=== PATIENT | male | born 1955 | race Caucasian/White ===

== ENCOUNTER 2018-07-29 19:32 | Emergency (ER) | payer MEDICARE, OTHER, SELFPAY ==
[2018-07-29] VITALS (7 sets, daily range): BP systolic 133–191; BP diastolic 74–95; PULSE 61–89; RESP 17–22; TEMP 36.8; O2SAT 96–100; BMI 25.1
[2018-07-29] MEDS: SODIUM CHLORIDE 0.9% 1,000 ML 150 ML IV (20:15)
[2018-07-29 20:36] LABS: Add Manual Diff / Slide Review NO; Basophils Absolute Auto 100 /uL (0-100); Basophils Percent Auto 1.1 % (0-2); Eosinophils Absolute Auto 200 /uL (0-450); Eosinophils Percent Auto 2.3 % (2-4); Hemoglobin 16.1 g/dL (13.5-17.5); Lymphocytes Absolute Auto 2100 /uL (1100-4500); Lymphocytes Percent Auto 21.1 % (25-40); Mean Corpuscular HGB Conc 33.6 % (30-36); Mean Corpuscular Hemoglobin 30.2 PG (26-34); Mean Corpuscular Volume 89.8 fL (80-100); Monocytes Absolute Auto 800 /uL (0-900); Neutrophils Absolute Auto 6800 /uL (1500-7000); Neutrophils Percent Auto 67.5 % (50-75); Platelet Count 195 X10^3/uL (150-400); Red Blood Cell Count 5.34 X10^6/uL (4.5-5.9); White Blood Cell Count 10.1 X10^3/uL (4.5-11.0)
[2018-07-29] MEDS: HYDROMORPHONE 1 MG INJ IV (20:42)
[2018-07-29] MEDS: ONDANSETRON 4 MG/2 ML INJ IV (20:42)
[2018-07-29 20:47] LABS: Alanine Aminotransferase 58 IU/L (21-72); Albumin Globulin Ratio 1.7 (1.0-2.8); Alkaline Phosphatase 93 U/L (38-126); Aspartate Aminotransferase 53 IU/L (17-59); BUN Creatinine Ratio 22.7 (6-22); Bilirubin Total 0.7 mg/dL (0.2-1.3); Blood Urea Nitrogen 25 mg/dL (9-20); Carbon Dioxide 25 mmol/L (22-32); Chloride 104 mmol/L (98-107); Creatine Kinase 638 U/L (55-170); Estimated Glomerular Filt Rate > 60.0 mL/min (>60); Glucose 90 mg/dL (80-110); HEMOLYSIS < 15 (0-50); Lipase 84 U/L (23-300); Potassium 3.9 mmol/L (3.4-5.1); Sodium 140 mmol/L (137-145)
[2018-07-29 20:58] LABS: Troponin I 0.013 ng/mL (0.01-0.034)
--- NOTE | 2018-07-29 20:58 | DI.RAD.S_ITS ---
PROCEDURE: XR ACUTE ABDOMEN SERIES INDICATIONS: Abdominal pain TECHNIQUE: One view chest and two views of the abdomen were acquired. COMPARISON: None. FINDINGS: Surgical changes and devices: None. Chest: Lungs are clear. Heart size is normal. No pleural effusions. No pneumoperitoneum. Abdomen: Bowel gas pattern is normal. No suspicious calcifications. Visualized solid organ contours appear normal. Large amount of fecal debris. Bones: No suspicious bony lesions. IMPRESSION: 1. No evidence acute pulmonary process. 2. No evidence acute abdominal process. 3. Large amount of fecal debris. Dictated by: Helder Pena M.D. on 07/29/2018 at 21:28 Approved by: Helder Pena M.D. on 07/29/2018 at 21:29
[2018-07-29 21:02] LABS: Creatine Kinase MB 6.47 ng/mL (<2.37)
[2018-07-29] MEDS: HYDROMORPHONE 1 MG INJ 0.5 MG IV (21:35)
--- NOTE | 2018-07-29 21:41 | DI.CT.S_ITS ---
PROCEDURE: CT ABDOMEN PELVIS W CON INDICATIONS: severe abdominal pain, sudden onset TECHNIQUE: After the administration of intravenous contrast, 5 mm thick sections acquired from the diaphragm to the symphysis. 5 mm coronal and sagittal reformats were acquired. For radiation dose reduction, the following was used: automated exposure control, adjustment of mA and/or kV according to patient size. COMPARISON: None. FINDINGS: Image quality: Excellent. ABDOMEN: Lung bases: Lung bases are clear. Heart size is normal. Solid organs: Liver is normal in size and enhancement. Gallbladder is unremarkable. Biliary system is non dilated. Pancreas enhances normally. Spleen is normal in size and enhancement. No adrenal nodules. Kidneys demonstrate normal size and enhancement, without hydronephrosis. Peritoneum and bowel: Bowel loops demonstrate normal wall thickness and caliber. No free fluid or air. Nodes and vessels: No retroperitoneal or mesenteric adenopathy by size criteria. Aorta and inferior vena cava are normal in size. Miscellaneous: No ventral hernias. PELVIS: Genitourinary: Bladder wall thickness is normal. Prostate is enlarged. Miscellaneous: There are bilateral inguinal hernias containing fat. Bones: No suspicious bony lesions. No vertebral body compression fractures. There is mild canal stenosis at L4-L5. At L5-S1, there is a right paracentral disc protrusion which impinges on the right S1 nerve root in the right lateral recess. IMPRESSION: 1. No evidence acute abdominal process. 2. Bilateral inguinal hernias containing fat. 3. Mild canal stenosis at L4-L5. 4. Right paracentral disc protrusion at L5-S1 impinges on the right S1 nerve root in the right lateral recess. Dictated by: Helder Pena M.D. on 07/29/2018 at 22:03 Approved by: Helder Pena M.D. on 07/29/2018 at 22:07
--- NOTE | 2018-07-29 23:05 | ED_ITS ---
HPI - Abdominal Pain General Chief Complaint: Abdominal Pain Stated Complaint: lower middle abdominal pain sudden onset Time Seen by Provider: 07/29/18 19:52 Source: patient and family Mode of arrival: ambulatory Limitations: no limitations History of Present Illness HPI narrative: 63-year-old male nonsmoker with a very benign medical history presents with multiple family and friends and a chief complaint of a sudden onset terrible abdominal pain. He had felt totally normal and at baseline until just prior to arrival when he had very severe sudden-onset mid epigastric pain which seems to move through his abdomen without provocation or palliation. His pain is worsened with palpation or movement. States that its onset felt very similar to prior episodes of gas pain but he has never had it last this long. He has had some difficulty moving his bowels lately but nothing out of the ordinary. He denies any significant alcohol or nicotine intake. He denies any recent antibiotics or exposure to bad food. He denies fever nor chills. When his pain became significant he vomited. He denies any dysuria, frequency or urgency. MD complaint: abdominal pain Onset (ago): minute(s) Pain Consistency: intermittent and colicky Location: diffuse Severity: severe Quality: cramping and stabbing Radiation: none Migration to: suprapubic Relieving factors: nothing Exacerbating factors: movement Associated symptoms: nausea and vomiting Related Data Previous Rx's Medication Instructions Recorded hydrocodone-acetaminophen 1 tab PO Q4-6H PRN #10 tab 07/29/18 ondansetron 4 mg PO TID-QID PRN #10 tab 07/29/18 Allergies Allergy/AdvReac Type Severity Reaction Status Date / Time Sulfa (Sulfonamide Allergy Verified 07/29/18 19:46 Antibiotics) Review of Systems Constitutional Denies chills, Denies fever(s), Denies lethargy and Denies weakness Eyes Denies change in vision, Denies eye discharge, Denies irritation and Denies loss of vision ENT Ears, Nose, Mouth, and Throat: Denies change in voice, Denies neck pain and Denies sore throat Cardiovascular Denies chest pain, Denies irregular heart rhythm, Denies lightheadedness, Denies palpitations, Denies dyspnea, Denies dyspnea on exertion and Denies orthopnea Respiratory Denies cough, Denies dyspnea, Denies dyspnea on exertion and Denies wheezing Gastrointestinal Gastrointestinal: Reports abdominal pain, Denies change in bowel habits, Denies diarrhea, Reports nausea and Reports vomiting Genitourinary Denies hematuria, Denies flank pain, Denies urinary incontinence and Denies urinary urgency Musculoskeletal Denies neck pain Integumentary/Breasts Denies pruritus, Denies erythema, Denies rash and Denies wounds Neurologic Denies confusion, Denies loss of vision and Denies weakness Psychiatric Denies anxiety, Denies confusion, Denies depression, Denies homicidal ideation and Denies suicidal ideation Endocrine Denies palpitations Hematologic/Lymphatic Denies easy bruising Allergic/Immunologic Denies wheezing PFSH Social History Smoking Status: Never smoker Exam Narrative Exam Narrative: GENERAL: 63-year-old male appears younger than stated age. He is obviously in significant distress with significant pain and holding his abdomen HEAD: Atraumatic. Normocephalic. No temporal or scalp tenderness. EYES: Pupils equal round and reactive. Extraocular motions intact. No scleral icterus. No injection or drainage. ENT: Nose without bleeding, purulent drainage or septal hematoma. Throat without erythema, tonsillar hypertrophy or exudate. Uvula midline. Airway patent. NECK: Trachea midline. No JVD or lymphadenopathy. Supple, nontender, no meningeal signs. CARDIOVASCULAR: Regular rate and rhythm without murmurs, gallops, or rubs. RESPIRATORY: Clear to auscultation. Breath sounds equal bilaterally. No wheezes, rales, or rhonchi. GASTROINTESTINAL: Abdomen soft, generalized tenderness, nondistended. No hepato-splenomegaly, or palpable masses. No guarding. no rebound EXTREMITIES: No clubbing, cyanosis, or edema. No joint tenderness, effusion, or edema noted. BACK: Nontender without deformity or crepitance. No flank tenderness. NEURO: AOx3. SKIN: No rash or erythema. Initial Vital Signs Initial Vital Signs: Vital Signs Temperature 98.3 F 07/29/18 19:36 Pulse Rate 65 07/29/18 19:36 Respiratory Rate 22 07/29/18 19:36 Blood Pressure 191/95 H 07/29/18 19:36 Pulse Oximetry 99 07/29/18 19:36 Course Orders Ordered: ED Orders 07/29/18 21:41 CT abdomen pelvis w con Stat Discontinued Medications Hydrocodone Bitart/Acetaminophen (Vicodin Prepack) 1 bottle MISC SEEINSTR ONE Stop: 07/29/18 23:06 Last Admin: 07/29/18 23:18 Dose: 1 bottle Hydromorphone HCl (Dilaudid) 1 mg IV NOW ONE Stop: 07/29/18 20:31 Last Admin: 07/29/18 20:42 Dose: 1 mg Hydromorphone HCl (Dilaudid) 0.5 mg IV NOW ONE Stop: 07/29/18 21:05 Last Admin: 07/29/18 21:35 Dose: Not Given Hydromorphone HCl (Dilaudid) 0.5 mg IV NOW ONE Stop: 07/29/18 21:34 Last Admin: 07/29/18 21:35 Dose: 0.5 mg Sodium Chloride (Normal Saline 0.9%) 1,000 mls @ 150 mls/hr IV CONT ALICIA Last Infusion: 07/29/18 23:18 Dose: 0 mls/hr Admin: 07/29/18 20:15 Dose: 150 mls/hr Ondansetron HCl (Zofran) 4 mg IV NOW ONE Stop: 07/29/18 20:31 Last Admin: 07/29/18 20:42 Dose: 4 mg Ondansetron HCl (Zofran Odt Prepack) 1 bottle MISC SEEINSTR ONE Stop: 07/29/18 23:06 Last Admin: 07/29/18 23:18 Dose: 1 bottle Reevaluation(s) Reevaluation #1: patient felt some relief after initial dose of Dilaudid but requested a 2nd dose. Sometime after the administration of that 2nd dose the patient had a complete resolution of his symptoms and remained that way for the duration of his stay Vital Signs - 8 hr 07/29/18 22:30 07/29/18 23:00 07/29/18 23:26 Pulse Rate 89 75 70 Respiratory Rate 22 17 Blood Pressure 134/83 Blood Pressure [Right Arm] 133/74 134/83 Pulse Oximetry 99 MDM - Abdominal Pain Differential Diagnosis Differential diagnosis: Likely abdominal pain, acute appendicitis, calculus of kidney, constipation, diverticulitis, pancreatitis and small bowel obstruction Medical Records Attestation: I reviewed the patient's medical records. Lab Data Attestation: I reviewed the patient's lab results. Result diagrams: 07/29/18 20:10 07/29/18 20:10 Lab Results 07/29/18 07/29/18 Range/Units 20:10 20:10 WBC 10.1 (4.5-11.0) X10^3/uL RBC 5.34 (4.5-5.9) X10^6/uL Hgb 16.1 (13.5-17.5) g/dL Hct 48.0 (41-53) % MCV 89.8 (80-100) fL MCH 30.2 (26-34) PG MCHC 33.6 (30-36) % RDW 14.0 (11.6-14.8) % Plt Count 195 (150-400) X10^3/uL Neut % (Auto) 67.5 (50-75) % Lymph % (Auto) 21.1 L (25-40) % Loup % (Auto) 8.0 (3-14) % Eos % (Auto) 2.3 (2-4) % Baso % (Auto) 1.1 (0-2) % Neut # (Auto) 6800 (9634-0911) /uL Lymph # (Auto) 2100 (7826-8907) /uL Loup # (Auto) 800 (0-900) /uL Eos # (Auto) 200 (0-450) /uL Baso # (Auto) 100 (0-100) /uL Sodium 140 (137-145) mmol/L Potassium 3.9 (3.4-5.1) mmol/L Chloride 104 (98-107) mmol/L Carbon Dioxide 25 (22-32) mmol/L BUN 25 H (9-20) mg/dL Creatinine 1.10 (0.66-1.25) mg/dL Estimated GFR > 60.0 (>60) mL/min BUN/Creatinine Ratio 22.7 H (6-22) Glucose 90 (80-110) mg/dL Calcium 10.0 (8.4-10.2) mg/dL Total Bilirubin 0.7 (0.2-1.3) mg/dL AST 53 (17-59) IU/L ALT 58 (21-72) IU/L Alkaline Phosphatase 93 (38-126) U/L Total Creatine Kinase 638 H (55-170) U/L CK-MB (CK-2) 6.47 H (<2.37) ng/mL CK-MB (CK-2) Rel Index 1.0 L (1.5-5.0) % Troponin I 0.013 (0.01-0.034) ng/mL Total Protein 8.0 (6.3-8.2) g/dL Albumin 5.0 (3.5-5.0) g/dL Globulin 3.0 (1.7-4.1) g/dL Albumin/Globulin Ratio 1.7 (1.0-2.8) Lipase 84 (23-300) U/L Point of care testing: Urine Dip Bedside Urine Glucose Negative Bedside Urine Bilirubin - Negative Bedside Urine Ketone + 15 Urine Specific [place] 1.020 Bedside Urine Occult Blood - Negative Bedside Urine pH 6.0 Bedside Urine Protein - Negative Bedside Urine Urobilinogen - Negative Bedside Urine Nitrite - Negative Bedside Urine Leukocytes - Negative Esterase Imaging Data CT scan - abdomen: Radiologist's impression: [address] [address] [address] Scan Report Signed Patient: Sathya Hunter [facility]#: [id number] : 4Acct:[id number] Age/Sex: 63 / MDate of Service: 07/29/18 Loc: ED Accession Number: [id number] Procedure: CT abdomen pelvis w con Ordering Provider: Roger Thomas D.O. PROCEDURE: CT ABDOMEN PELVIS W CON INDICATIONS: severe abdominal pain, sudden onset TECHNIQUE: After the administration of intravenous contrast, 5 mm thick sections acquired from the diaphragm to the symphysis. 5 mm coronal and sagittal reformats were acquired. For radiation dose reduction, the following was used: automated exposure control, adjustment of mA and/or kV according to patient size. COMPARISON: None. FINDINGS: Image quality: Excellent. ABDOMEN: Lung bases: Lung bases are clear. Heart size is normal. Solid organs: Liver is normal in size and enhancement. Gallbladder is unremarkable. Biliary system is non dilated. Pancreas enhances normally. Spleen is normal in size and enhancement. No adrenal nodules. Kidneys demonstrate normal size and enhancement, without hydronephrosis. Peritoneum and bowel: Bowel loops demonstrate normal wall thickness and caliber. No free fluid or air. Nodes and vessels: No retroperitoneal or mesenteric adenopathy by size criteria. Aorta and inferior vena cava are normal in size. Miscellaneous: No ventral hernias. PELVIS: Genitourinary: Bladder wall thickness is normal. Prostate is enlarged. Miscellaneous: There are bilateral inguinal hernias containing fat. Bones: No suspicious bony lesions. No vertebral body compression fractures. There is mild canal stenosis at L4-L5. At L5-S1, there is a right paracentral disc protrusion which impinges on the right S1 nerve root in the right lateral recess. IMPRESSION: 1. No evidence acute abdominal process. 2. Bilateral inguinal hernias containing fat. 3. Mild canal stenosis at L4-L5. 4. Right paracentral disc protrusion at L5-S1 impinges on the right S1 nerve root in the right lateral recess. Dictated by: Helder Pena M.D. on 07/29/2018 at 22:03 MDM Narrative Medical decision making narrative: 63-year-old otherwise healthy male presents with out rages sudden onset abdominal pain soon after eating and drinking some beer. Pancreatitis and gallbladder disease considered but thought less likely given lack of findings on imaging or labs. Bowel obstruction, volvulus or similar considered but thought less likely given lack of supporting findings on imaging. Vascular abnormality considered but thought less likely given lack of supporting imaging findings. Most likely diagnosis is gas pain / constipation or resolved early partial obstruction given complete resolution of symptoms and essentially normal ED work up. Extensive discussion with patient and family re garding the results of our evaluation. Patient and family have had their questions answered to their apparent satisfaction, additionally extensive return precautions given and full understanding evidenced by his ability to verbalize these back Discharge Plan Departure Patient Disposition: Home Clinical Impression: Abdominal pain Qualifiers: Abdominal location: generalized Qualified Code(s): R10.84 - Generalized abdominal pain Discharge Date/Time: 07/29/18 23:34 Interventions: ED Discharge Assessment Last Done: 07/29/18 23:26 Instructions: DI for Abdominal Pain-Adult Activity Restrictions/Additional Instructions: *You have been diagnosed with [ abdominal pain, likely due to large stool burden and gas. Pancreatitis, gall bladder, appendicitis and other significant diagnoses considered and ruled out] *What to do: *Take medications as directed *Follow up with your primary care provider in 2-3 days, call for an appointment. Let them know you were seen in the Emergency Department and that we ask that you be seen in follow up *Return to ER if you should have any new, worsening or concerning symptoms, such as worsening pain, persistent vomiting, fever over 101F, or other bothersom e symptoms 1. Stay active 2. Return to your normal diet as much as possible 3. Stay well hydrated 4. A combination of over the counter laxitives including Dulcolax (stimulant laxative) Magnesium Citrate (pulls water into stool) Colace (stool softener) . Prescriptions: New hydrocodone-acetaminophen 5-325 mg tablet 1 tab PO Q4-6H PRN (Reason: pain) Qty: 10 RF: 0 ondansetron 4 mg tablet,disintegrating 4 mg PO TID-QID PRN (Reason: nausea and vomiting) Qty: 10 RF: 0
[2018-07-29] MEDS: ONDANSETRON 4 MG ODT PREPACK 1 BOTTLE MISC (23:18)
[2018-07-29] MEDS: HYDROCODONE/ACET 5/325 PREPACK 1 BOTTLE MISC (23:18)
== END 2018-07-29 23:34 | disposition home or self-care (01) ==
PROVIDERS: Emergency Provider Emergency Medicine
DX: R10.84 Generalized abdominal pain (principal)
CPT/HCPCS: 36591; 74022; 74177; 80053; 81003; 82550; 82553; 83690; 84484; 85025; 96361; 96374; 96375; 96376; 99283; 99285; J1170; J2405